=== PATIENT | female | born 1975 | race Hispanic/Latino ===

== ENCOUNTER 2019-04-20 13:43 | Emergency (ER) | payer BC ==
[~2019-04-20 13:43] MED LIST: ALBU2.5V2 IH; AMOX875T2 PO; ESCI10TA PO; FLUT1DIS3 IH; METO25TA6 PO; MONT10TA21 PO; P EP PO; PRED10TA3 PO
[2019-04-20 14:32] LABS: BASOPHILS % (AUTO) 0.5 % (0.0-5.0); EOSINOPHILS % (AUTO) 0.3 % (0.0-8.0); HEMATOCRIT 43.2 % (36-48); LYMPHOCYTES % (AUTO) 19.7 % (21.0-51.0); MEAN CORPUSCULAR HEMOGLOBIN 26.9 pg (27.0-33.0); MEAN CORPUSCULAR HGB CONC 33.3 g/dL (32.0-36.0); MEAN CORPUSCULAR VOLUME 80.9 fL (79-99); MONOCYTES % (AUTO) 6.4 % (3.0-13.0); NEUTROPHILS % (AUTO) 73.1 % (40.0-77.0); NUCLEATED RED BLOOD CELLS 0.2 % (0.0-0.19); PLATELET COUNT (AUTO) 263 K/uL (130-400); RED BLOOD CELL COUNT(AUTO) 5.35 MIL/uL (4.00-5.50); RED CELL DISTRIBUTION WIDTH 15.6 % (11.0-15.5); WHITE BLOOD COUNT (AUTO) 10.2 K/uL (4.8-10.8)
[2019-04-20 14:41] LABS: POTASSIUM 3.4 mmol/L (3.5-5.1)
[2019-04-20 14:47] LABS: BILIRUBIN,TOTAL 0.4 mg/dL (0.2-1.0); TOTAL PROTEIN, SERUM 7.6 g/dL (6.0-8.3)
== END 2019-04-20 16:02 | disposition home or self-care (01) ==
LOC: EDH 13:43
DX: R19.7 Diarrhea, unspecified (principal); R53.1 Weakness; R42 Dizziness and giddiness; J45.909 Unspecified asthma, uncomplicated; Z90.710 Acquired absence of both cervix and uterus
CPT/HCPCS: 36415; 80053; 83690; 85025; 96360; 96361

== ENCOUNTER 2025-05-19 07:29 | Day surgery (SDC) | payer BC ==
[~2025-05-19] VITALS: Ht 162.6 cm; Wt 113.4 kg
[2025-05-19] VITALS (11 sets, daily range): BP systolic 110–173; BP diastolic 56–90; PULSE 69–85; RESP 14–20; TEMP 97.1–98.2
[~2025-05-19 07:29] MED LIST changes: +MONT-47 PO; -MONT10TA21 PO
[2025-05-19] MEDS: 0.9%NACL 1000ML 1,000 ML IV ONE (08:11)
== END 2025-05-19 13:20 | disposition home or self-care (01) ==
LOC: DAH 07:29
PROVIDERS: ATTEND Internal Medicine Gastroenterology
DX: K29.50 Unspecified chronic gastritis without bleeding (principal); K31.7 Polyp of stomach and duodenum; K31.89 Other diseases of stomach and duodenum; K92.9 Disease of digestive system, unspecified; I10 Essential (primary) hypertension; F41.9 Anxiety disorder, unspecified; Z90.710 Acquired absence of both cervix and uterus; Z98.890 Other specified postprocedural states; Z82.49 Family history of ischemic heart disease and other diseases of the circulatory system; Z79.899 Other long term (current) drug therapy; Z80.0 Family history of malignant neoplasm of digestive organs
CPT/HCPCS: 43254; 43239; 43251; 43259; J7030; J2704 ×2; A4620; A4215 ×2; A4223; A4222; A4221; A4663; A4606; 43236; J3490